=== PATIENT | male | born 1950 | race Caucasian/White ===

== ENCOUNTER 2017-02-23 15:44 | Emergency (ER) | payer BC, OTHER ==
[~2017-02-23] VITALS: Ht 170.2 cm; Wt 68.0 kg
[~2017-02-23 15:44] MED LIST: ACTO15TA6 OR; ASPI-94 PO; CORE3.12 OR; FLUO60TA OR; GLUCTAB OR; LISI10 OR; METH500T3 PO; NOVOLOGSS SC; OXYC-360 PO; PLAV75TA OR; PRAV20 OR; SPIR50 PO; TRAM150C5 PO
[2017-02-23 15:52] VITALS: BP 114/62; PULSE 66; RESP 16; TEMP 97.8; O2SAT 99
[2017-02-23] MEDS ORDERED: SODIUM CHLORIDE 0.9% FLUSH 10 ML FLUSH IVF PRN (16:00)
[2017-02-23] MEDS ORDERED: SODIUM CHLOR 0.9% 1000 ML INJ 1,000 ML IV ONE (16:00)
[2017-02-23 16:01] VITALS: BP_SYST 122; BP_SYST 96; BP_DIAS 57; BP_DIAS 68; BP_DIAS 72; RESP 16; O2SAT 98
--- NOTE | 2017-02-23 16:09 | PD ---
HPI Chief Complaint: Dizziness Time Seen by Provider: 15:50 Travel History International Travel<30 days: No Contact w/Intl Traveler<30days: No Traveled to known affect area: No History of Present Illness HPI This patient is brought in for a spell of lightheadedness and dizziness. It lasted 5 minutes. Resolved spontaneously. No alleviating factors. No syncope. Denies chest pain or palpitations or headache. He was walking in his car to the store when this occurred. Paramedics report his blood pressure was 90 upon arrival to the scene. He received 700 cc of saline in route and is now 1:15 systolic. Symptoms were moderately severe. PFSH Past Medical History Hx Anticoagulant Therapy: Yes (COUMADIN) Arthritis: Yes Cardiovascular Problems: Yes Diabetes: Yes Diminished Hearing: No Hypertension: Yes Immunizations Current: Yes Past Surgical History Coronary Artery Bypass Graft: Yes Social History Alcohol Use: Yes (1 BEER A MONTH, MAYBE) Tobacco Use: No Substance Use: No Allergies-Medications (Allergen,Severity, Reaction): Coded Allergies: Penicillin (Verified Allergy, Severe, RASH, 02/23/17) Reported Meds & Prescriptions Reported Meds & Active Scripts Active Reported Lantus Inj (Insulin Glargine) 1,000 Unit/10 Ml Vial 72 Units SQ HS Humalog Inj (Insulin Human Lispro) 1,000 Unit/10 Ml Vial 25 Units SQ ACHS Max dose at bedtime:( )units; sugars< 70,(0)units; sugars 150-199,(1)unit; sugars 200-249,(3)units; sugars 250-299,(5)units; sugars 300-349,(7)units; sugars more than 349,(9)units. Lorazepam 0.5 Mg Tab 0.5 Mg PO DAILY PRN Carvedilol 6.25 Mg Tab 6.25 Mg PO BID Metformin (Metformin HCl) 1,000 Mg Tab 1,000 Mg PO BIDPC With meals Pravastatin 80 Mg Tab 80 Mg PO DAILY Spironolactone 25 Mg Tab 25 Mg PO DAILY Lisinopril 40 Mg Tab 40 Mg PO DAILY Coumadin (Warfarin) 6 Mg Tab 6 Mg PO DAILY Finasteride 5 Mg Tab 5 Mg PO DAILY Do not crush. Plavix (Clopidogrel Bisulfate) 75 Mg Tab 75 Mg PO DAILY Review of Systems General / Constitutional: No: Fever Eyes: No: Visual changes HENT: Positive: Lightheadedness, No: Headaches Cardiovascular: No: Chest Pain or Discomfort Respiratory: No: Shortness of Breath Gastrointestinal: Positive: Nausea, No: Abdominal Pain Genitourinary: No: Dysuria Musculoskeletal: Positive: Weakness, No: Pain Skin: No Rash Neurologic: Positive: Weakness, Dizziness Psychiatric: No: Depression Endocrine: No: Polydipsia Hematologic/Lymphatic: No: Easy Bruising Physical Exam Narrative GENERAL: Well-nourished, well-developed patient in no apparent distress. SKIN: Focused skin assessment reveals no rash and nodules. Skin is Warm and dry. HEAD: Atraumatic. Normocephalic. EYES: Pupils equal and round. No scleral icterus. No injection or drainage. ENT: No nasal bleeding or discharge. Mucous membranes pink and moist. NECK: Trachea midline. No JVD. CARDIOVASCULAR: Regular rate and rhythm. No murmur appreciated. RESPIRATORY: No accessory muscle use. Clear to auscultation. Breath sounds equal bilaterally. GASTROINTESTINAL: Abdomen soft, non-tender, nondistended. Hepatic and splenic margins not palpable. MUSCULOSKELETAL: No obvious deformities. No clubbing. No cyanosis. No edema. NEUROLOGICAL: Awake and alert. No obvious cranial nerve deficits. Motor grossly within normal limits. Normal speech. PSYCHIATRIC: Appropriate mood and affect; insight and judgment normal. Data Data Last Documented VS Vital Signs Date Time Temp Pulse Resp B/P Pulse Ox O2 Delivery O2 Flow Rate FiO2 02/23/17 17:30 92 16 111/68 99 Room Air 02/23/17 15:52 97.8 Orders Electrocardiogram (02/23/17 16:00) Basic Metabolic Panel (Bmp) (02/23/17 16:00) Complete Blood Count With Diff (02/23/17 16:00) Prothrombin Time / Inr (Pt) (02/23/17 16:00) Ecg Monitoring (02/23/17 16:00) Iv Access Insert/Monitor (02/23/17 16:00) Oximetry (02/23/17 16:00) Sodium Chloride 0.9% Flush (Ns Flush) (02/23/17 16:00) Orthostatic Vital Signs (02/23/17 16:00) Sodium Chlor 0.9% 1000 Ml Inj (Ns 1000 M (02/23/17 16:00) Labs Laboratory Tests Test 02/23/17 16:15 White Blood Count 5.0 TH/MM3 Red Blood Count 3.69 MIL/MM3 Hemoglobin 10.7 GM/DL Hematocrit 32.3 % Mean Corpuscular Volume 87.4 FL Mean Corpuscular Hemoglobin 28.9 PG Mean Corpuscular Hemoglobin 33.1 % Concent Red Cell Distribution Width 15.4 % Platelet Count 141 TH/MM3 Mean Platelet Volume 8.9 FL Neutrophils (%) (Auto) 62.6 % Lymphocytes (%) (Auto) 21.1 % Monocytes (%) (Auto) 10.7 % Eosinophils (%) (Auto) 4.6 % Basophils (%) (Auto) 1.0 % Neutrophils # (Auto) 3.1 TH/MM3 Lymphocytes # (Auto) 1.0 TH/MM3 Monocytes # (Auto) 0.5 TH/MM3 Eosinophils # (Auto) 0.2 TH/MM3 Basophils # (Auto) 0.1 TH/MM3 CBC Comment DIFF FINAL Differential Comment Prothrombin Time 15.4 SEC Prothromb Time International 1.4 RATIO Ratio Sodium Level 138 MEQ/L Potassium Level 4.4 MEQ/L Chloride Level 105 MEQ/L Carbon Dioxide Level 26.4 MEQ/L Anion Gap 7 MEQ/L Blood Urea Nitrogen 16 MG/DL Creatinine 0.99 MG/DL Estimat Glomerular Filtration 76 ML/MIN Rate Random Glucose 156 MG/DL Calcium Level 8.5 MG/DL MDM Medical Decision Making Medical Screen Exam Complete: Yes Emergency Medical Condition: Yes Medical Record Reviewed: Yes Differential Diagnosis Cardiac arrhythmia, orthostatic hypotension, dehydration Narrative Course I have reviewed the patient's electronic medical record. Patient was here 2011 for humeral neck fracture IV placed I gave him an additional 1 L normal saline IV I reviewed his EKG which shows sinus rhythm without ectopy Extended cardiac monitoring shows sinus rhythm without ectopy CBC is normal Metabolic profile is normal Patient's examination is normal and his symptoms have resolved and his blood pressure is improved. Patient feels better and would like to go home. We ambulated him in the hallway and he did well without symptoms His blood pressure is low but stable at 111 systolic I reviewed his medical list. He has 4 separate medications that can lower blood pressure. I'm going to recommend he hold 3 of him and check and record his pulse and blood pressure daily. I'm recommending walker for added stability. I recommend he call his primary physician tomorrow for follow-up. Diagnosis Primary Impression: Pre-syncope Additional Impression: Medication side effect Qualified Code: T88.7XXA - Medication side effect, initial encounter Additional Instructions: Check and recorded pulse and blood pressure daily Stop carvedilol Stop lisinopril Stop spironolactone The patient was advised to follow up with their physician and return if they worsen. Recommending walker use for added stability Med/Other Pt SpecificInfo: Other Disposition: 01 DISCHARGE HOME Condition: Stable Vicente Soler MD Feb 23, 2017 16:09
[2017-02-23 16:22] LABS: AUTOMATED NEUTROPHIL # 3.1 TH/MM3 (1.8-7.7); BASOPHIL # 0.1 TH/MM3 (0-0.2); EOSINOPHIL # 0.2 TH/MM3 (0-0.4); EOSINOPHIL % 4.6 % (0.0-4.0); HEMATOCRIT 32.3 % (39.0-51.0); HEMO FLAGS DIFF FINAL; LYMPH % 21.1 % (9.0-44.0); MEAN CELL VOLUME 87.4 FL (80.0-100.0); MEAN CORPUSCULAR HEMOGLOBIN 28.9 PG (27.0-34.0); MEAN CORPUSCULAR HGB CONC 33.1 % (32.0-36.0); MONO % 10.7 % (0.0-8.0); NEUT % 62.6 % (16.0-70.0); PLATELET COUNT 141 TH/MM3 (150-450); RED BLOOD COUNT 3.69 MIL/MM3 (4.50-5.90); RED CELL DISTRIBUTION WIDTH 15.4 % (11.6-17.2)
[2017-02-23 16:33] LABS: INTERNATIONAL NORMALIZED RATIO 1.4 RATIO; PROTHROMBIN TIME - PATIENT 15.4 SEC (9.8-11.6)
[2017-02-23 16:38] VITALS: BP 143/64; PULSE 64; RESP 16; O2SAT 99
[2017-02-23] MEDS ORDERED: PLAV75TA29 PO (16:43)
[2017-02-23] MEDS ORDERED: PRAV80TA2 PO (16:43)
[2017-02-23] MEDS ORDERED: LORA-373 PO (16:43)
[2017-02-23] MEDS ORDERED: LANTUS2P SQ (16:43)
[2017-02-23] MEDS ORDERED: LISI40TA PO (16:43)
[2017-02-23] MEDS ORDERED: COUM6TAB PO (16:43)
[2017-02-23] MEDS ORDERED: FINA5TAB2 PO (16:43)
[2017-02-23] MEDS ORDERED: METF1000 PO (16:43)
[2017-02-23] MEDS ORDERED: SPIR25TA PO (16:43)
[2017-02-23] MEDS ORDERED: CARV6.252 PO (16:43)
[2017-02-23] MEDS ORDERED: HUMALOG SQ (16:43)
[2017-02-23 17:01] LABS: BICARBONATE 26.4 MEQ/L (21.0-32.0); POTASSIUM 4.4 MEQ/L (3.5-5.1)
[2017-02-23 17:30] VITALS: BP 111/68; PULSE 92; RESP 16; O2SAT 99
[2017-02-23 18:25] VITALS: BP 124/77; TEMP 98
--- NOTE | 2017-02-24 13:57 | EKG ---
Date Performed: 02/23/2017 Time Performed: 16:29:08 PTAGE: 66 years EKG: Sinus rhythm MODERATE INTRAVENTRICULAR CONDUCTION DELAY ST DEVIATION AND MODERATE T-WAVE ABNORMALITY, CONSIDER AN TEROLATERAL ISCHEMIA ABNORMAL ECG NO PREVIOUS TRACING DOCTOR: Anel Colindres Interpretating Date/Time 02/24/2017 13:56:12
== END 2017-02-23 18:26 | disposition home or self-care (01) ==
LOC: NEPE 15:44
DX: R55 Syncope and collapse (principal); R42 Dizziness and giddiness; T88.7XXA Unspecified adverse effect of drug or medicament, initial encounter; E11.9 Type 2 diabetes mellitus without complications; I10 Essential (primary) hypertension
CPT/HCPCS: 80048; 85025; 85610; 93005; 96360; 99284; J7030